=== PATIENT | female | born 1950 | race Caucasian/White ===

== ENCOUNTER 2023-01-26 12:02 | Inpatient (IN) | payer OTHER ==
[~2023-01-26] VITALS: Ht 172.7 cm; Wt 107.0 kg
--- NOTE | 2023-01-26 12:43 | NUR ---
SE RECIBE PTE ALERTA Y ORIENTADO X3 REFIERE QUE VIENE DE LA OFICINA DR. DAVIS Y EL DR. DAVIS LE REFIRIO QUE VENGA A LA JUAN DE EMERGENCIA PORQUE EL [place] NO FUNCIONA SIM LE REFIFIO EL PTE REFIERE QUE [place]AM[place] A HARVEY IQBAL. SE CYNDI CRIS SE JOSÉ MANUEL EN OBSERVACION.
--- NOTE | 2023-01-26 14:47 | NUR ---
PTE EVALUADO POR MD PATTERSON [place] MED SE EDUCA A PTE SOBRE EL MISMO Y REFIER EENTENDER. SE EJECUTAN ORDENES BAJO MEDIDAS ACEPTICAS. PTE PEND A RESULTADOS DE ALB.
[2023-01-27] MEDS ORDERED: CIPRO500 MG PO (15:33)
[2023-01-27] MEDS ORDERED: OXYC1TAB9 PO (15:34)
== END 2023-01-27 19:51 | disposition home or self-care (01) | DRG 42 ==
LOC: ER 12:02 → SURH 15:16 → SEC-K 15:16 → O/R 16:34 → SEC-K 16:35 → SURH 21:01
PROVIDERS: ADMIT Colon & Rectal Surgery; ATTEND Colon & Rectal Surgery
PROC: 01PY0MZ Removal of Neurostimulator Lead from Peripheral Nerve, Open Approach (ICD-10-PCS; principal; 2023-01-26)
PROC: 0JPT0MZ Removal of Stimulator Generator from Trunk Subcutaneous Tissue and Fascia, Open Approach (ICD-10-PCS; 2023-01-26)
DX: T85.111A Breakdown (mechanical) of implanted electronic neurostimulator of peripheral nerve electrode (lead), initial encounter (principal); T85.113A Breakdown (mechanical) of implanted electronic neurostimulator, generator, initial encounter; T85.193A Other mechanical complication of implanted electronic neurostimulator, generator, initial encounter; T85.732A Infection and inflammatory reaction due to implanted electronic neurostimulator of peripheral nerve, electrode (lead), initial encounter; Z20.822 Contact with and (suspected) exposure to COVID-19; T85.734A Infection and inflammatory reaction due to implanted electronic neurostimulator, generator, initial encounter; Y75.2 Prosthetic and other implants, materials and neurological devices associated with adverse incidents